=== PATIENT | female | born 1960 | race Caucasian/White ===

== ENCOUNTER 2022-06-06 17:54 | Emergency (ER) | payer MEDICAID ==
[~2022-06-06] VITALS: Ht 154.9 cm; Wt 76.0 kg
[2022-06-06 18:45] VITALS: BP 224/95
[2022-06-06] MEDS ORDERED: ACETAMINOPHEN 325MG TABLET PO ONE (18:45)
[2022-06-06] MEDS ORDERED: KETOROLAC 60MG/2ML VIAL IM ONE (18:45)
[2022-06-06] MEDS ORDERED: LIDOCAINE 5% PATCH TOP SCH (18:45)
[2022-06-06] MEDS ORDERED: METH-653 MT (20:10)
[2022-06-06] MEDS ORDERED: TOPUD PO (20:10)
[2022-06-06] MEDS ORDERED: IBUP-2028 MT (20:10)
[2022-06-06] MEDS ORDERED: LIDO1ADH23 TP (20:10)
== END 2022-06-06 22:37 | disposition home or self-care (01) ==
LOC: ER 17:54
DX: S70.02XA Contusion of left hip, initial encounter (principal); W18.39XA Other fall on same level, initial encounter; Y93.89 Activity, other specified; Y92.89 Other specified places as the place of occurrence of the external cause; Y99.8 Other external cause status; I10 Essential (primary) hypertension
CPT/HCPCS: 71045; 71100; 72040; 73502; 73552; 96372; 99284; J1885